=== PATIENT | male | born 1995 | race Caucasian/White ===

== ENCOUNTER 2024-08-15 08:39 | Emergency (ER) | payer BC, SELFPAY ==
--- NOTE | ~2024-08-15 | XR_ITS ---
HISTORY: pain, swelling, FOOSH injury 1 days ago COMPARISON: None TECHNIQUE: 3 views of the right wrist were performed. FINDINGS: Acute fracture of the medial margin of the distal radius, extending into the articular surface. Possible disruption of the distal carpal arcs from the proximal carpal arcs. Increased distance between the scaphoid and the trapezium and trapezoid bones for which ligamentous d isruption is suspected. The carpal arcs are otherwise intact. Bone mineralization is age-appropriate. Trace degenerative disease within the first carpometacarpal joint space No radiopaque foreign body is identified. IMPRESSION: Acute fracture of the radial margin of the distal radius extending into the articular surface with po ssible ligamentous disruption, as detailed above. Reviewed, dictated and finalized at location A. [employer] OFFICER IMPRESSION: Acute fracture of the radial margin of the distal radius extending into the art icular surface with possible ligamentous disruption, as detailed above.
--- NOTE | 2024-08-15 08:40 | ED.UPPEXIN ---
HPI - Extremity Injury (Upper) General Chief Complaint: Extremity Injury, Upper Stated Complaint: RT Wrist Pain Time Seen by Provider: 08/15/24 09:03 Source: patient, RN notes reviewed and old records reviewed Mode of arrival: ambulatory Limitations: no limitations History of Present Illness HPI narrative: 29-year-old male presents to the [facility] with complaints of right wrist pain. Pain all for the ulnar aspect into the hand. Bruising and swelling noted to the dorsal aspect. Patient reports full range of motion when he originally injured it. Decreased range of motion and increased pain. Related Data Home Medications ?Medication ?Instructions ?Recorded ?Confirmed ?Last Taken ?Type amlodipine 10 mg-olmesartan 40 mg 1 tablet PO DAILY 06/13/20 Unknown History tablet Allergies Allergy/AdvReac Type Severity Reaction Status Date / Time No Known Allergies Allergy Verified 08/15/24 09:01 Review of Systems Review of Systems: All systems reviewed & are unremarkable except as noted in HPI and below Constitutional: Constitutional: Reports no additional constitutional complaints ENT: Reports system reviewed and no additional complaints, except as documented Cardiovascular: Cardiovascular: Reports no additional cardiovascular complaints, Denies chest pain and Denies dyspnea Respiratory: Respiratory: Reports no additional respiratory complaints, Denies chest congestion, Denies cough and Denies dyspnea Musculoskeletal: Musculoskeletal: Reports as per HPI, Reports arthralgias and Reports joint swelling Integumentary/Breasts: Skin/Breast: Reports system reviewed and no additional complaints, except as docu PMFSH Past Medical History Medical History Possible exposure to STD Subscapularis tendinitis of right shoulder Lipoma of lower back HTN (hypertension), benign Social History Social History Smoking status: Never smoker Alcohol intake: never Comments At the time of my signature, I reviewed and agree with the nursing past medical, surgical, social, and family history. There is no relevant family history pertinent to the patient complaint. Exam Const: General: cooperative, healthy appearing, comfortable, no acute distress, well developed, alert and well nourished Nutritional Appearance: well nourished Orientation/consciousness: patient oriented x3 Limitations: no limitations HENMT: Head: normal to inspection Eyes: General: appearance normal, both eyes and all related structures Alignment and Position: alignment normal Neck: Neck: normal visual inspection, full ROM, no lymphadenopathy and no meningeal signs Chest: Chest palpation & inspection: normal inspection of the chest Resp: Effort & Inspection: normal respiratory effort and able to speak in complete sentences Cardio: Rate: regular rate Skin: General skin exam: normal color and no rashes or lesions noted Neuro: General: patient oriented x3, gait normal, moves all extremities and no meningeal signs Cognition (Neuro): normal cognition Speech: normal speech Gait exam (Neuro): Normal gait present Extrem: General: normal to inspection, full ROM, capillary refill normal and normal gait Right upper extremity: normal capillary refill, elbow/forearm normal to inspection and normal ROM, wrist tenderness, swelling, abnormal ROM and ecchymosis and Extremity exam: right hand normal capillary refill, neuromotor exam normal thumb opposition normal, thumb IP flexion normal, thumb ADduction normal and fingers 2-5 ABduction normal and normal ROM of fingers Hand/finger images:  1. Swelling, ecchymosis, tenderness to palpation. Psych: Appearance: grossly normal and well kempt Mental Status: mental status grossly normal Speech and movement: Normal speech and movement present and Clear speech present Affect: normal affect Attitude: cooperative Course Course Level of Care: Express Care Visit Vital Signs Vital signs: Vital Signs Temperature 97.5 F L 08/15/24 08:57 Pulse Rate 54 L 08/15/24 08:57 Respiratory Rate 18 08/15/24 08:57 Blood Pressure 129/63 08/15/24 08:57 Pulse Oximetry 100 08/15/24 08:57 Oxygen Delivery Room Air 08/15/24 08:57 Temperature 97.5 F L 08/15/24 08:57 Pulse Rate 54 L 08/15/24 08:57 Respiratory Rate 18 08/15/24 08:57 Blood Pressure 129/63 08/15/24 08:57 Pulse Oximetry 100 08/15/24 08:57 Oxygen Delivery Room Air 08/15/24 08:57 Reviewed MDM - Extremity Injury (Upper) MDM Narrative Medical decision making narrative: Patient sitting in exam room. Nontoxic, vitals stable. Patient in no acute distress. Patient presents with slip fall, FOOSH injury. Pain to the right wrist. Fracture noted on x-ray. Patient is placed in splint, given sling. Patient will follow-up with orthopedic back home in [facility]. Patient appropriate for outpatient treatment and follow-up Discharge instructions reviewed with patient, as well as provided in writing per nursing staff. The instructions also include specific and strict return/GO TO THE ER as well as f/u information. All questions have been answered, and the patient deny any further questions with discharge and discharge plan. Some parts of this dictation were generated by voice recognition software and may contain typographical and/or grammatical inaccuracies. Differential Diagnosis Differential diagnosis: Likely sprain and strain of wrist, fracture of wrist and fracture of hand Imaging Data Radiologist's impression: HISTORY: pain, swelling, FOOSH injury 1 days ago COMPARISON: None TECHNIQUE: 3 views of the right wrist were performed. FINDINGS: Acute fracture of the medial margin of the distal radius, extending into the articular surface. Possible disruption of the distal carpal arcs from the proximal carpal arcs. Increased distance between the scaphoid and the trapezium and trapezoid bones for which ligamentous disruption is suspected. The carpal arcs are otherwise intact. Bone mineralization is age-appropriate. Trace degenerative disease within the first carpometacarpal joint space No radiopaque foreign body is identified. IMPRESSION: Acute fracture of the radial margin of the distal radius extending into the articular surface with possible ligamentous disruption, as detailed above. Critical Care Time Critical Care Time Critical Care Time: No Discharge Plan Discharge Clinical Impression: Distal radius fracture, right Qualifiers: Encounter type: initial encounter Patient Disposition: Home, Self-Care Condition: Stable Instructions: Antibiotic Form, Wrist Fracture in Adults (ED), How to Use a Sling (ED), Splint Care (ED) Additional Instructions: Rest, ice and elevate every 2-3 hours for 15-20 minutes while awake Wear the splint until you see orthopedic Wear the sling for comfort Follow-up with orthopedic provider as soon as possible For new or worsening symptoms go directly to the emergency Patient Language: Luxembourger Prescriptions: No Action amlodipine-olmesartan 10-40 mg tablet 1 tablet PO DAILY Follow-up/Referrals: Albino Cruz MD [Physician] - UNKNOWN,DOCTOR [Non-Staff] - Stand Alone Forms: Work/School Release IP Time of Disposition: 10:00
[2024-08-15 08:57] VITALS: BP 129/63; PULSE 54; RESP 18; TEMP 36.4; O2SAT 100
--- OUTSIDE RECORDS SUMMARY | 2024-08-15 08:57 | XMS_ITS | Clinical Summary ---
Author Organization [facility] Address [facility] [place] [address] Care Team Providers Care Interventional Radiologist Name Role Phone Pcp, No Primary Care Provider Unavailabl e Allergies No known active allergies Medications Medication Sig Dispensed Refills Start Date End Date Status hydroCHLOROthiaz emani 12.5 mg capsule (MICROZIDE) TAKE 1 CAPSULE BY MOUTH EVERY DAY IN THE MORNING 90 capsule 1 07/29/2023 Active Additional Information Patient not taking.Reported on 10/26/2023 amLODIPine 10 mg-olmesartan 40 mg tablet (JAKE) Take 1 tablet by mouth daily. 90 tablet 1 07/19/2024 6 Active amLODIPine 10 mg-olmesartan 40 mg tablet (JAKE) Take 1 tablet by mouth daily. 90 tablet 2 10/29/2023 5 Discontinued Active Problems Problem Noted Date Diagnosed Date Orthostatic hypotension 03/28/2019 Assessment & Plan (09/26/2019 11:26 AM CDT): Instructed patient on mechanism and to be aware of when it will occur and to drink 16 ounces of room temperature water and eat a salty snack on days that are more problematic. Encourage him to drink plenty of water on a daily basis. Assessment & Plan (03/28/2019 11:38 AM CDT): Secondary to his meds. -Instructed patient on mechanism and to be aware of when it will occur and to drink 16 ounces of room temperature water and eat a salty snack on days that are more problematic. Essential (primary) hypertension 02/14/2019 Overview (02/23/2019): Prior w/u at [facility] U in included Echo, CT and labs(CBC, CMP and metanephrines), all of which were normal. Assessment & Plan (10/26/2023 12:33 PM CDT): Blood pressure currently in the 110s over 60s. Since he is quite orthostatic and is already drinking a lot of water he will reduce his Jake to one half tab daily and message me in a couple weeks with readings. Assessment & Plan (11/03/2022 4:01 PM CDT): Blood pressure is well controlled on current regimen. BMP today I have suggested that he go to see a psychologist to help him deal with his day-to-day anxiety, as this could be blood pressure and may enable him to both deal with his anxiety better and allow him to reduce his antihypertensive regimen. Assessment & Plan (04/21/2022 3:12 PM CDT): Blood pressure mildly elevated even on Jake and 6.25 mg of hydrochlorothiazide. His blood pressure did come down some with the addition of the hydrochlorothiazide so I asked him to take a full tablet of 12.5 mg daily and to get his labs checked in 2 weeks. He is also going to work on shedding the 10 to 15 pounds that he gained since our last visit. Echo reviewed with patient Assessment & Plan (04/01/2021 9:25 AM CDT): Blood pressure is well controlled by home readings I did instruct him to be sure he has his cuff checked against a reliable cuff to make sure his readings are accurate BMP ordered for today Echo ordered for follow-up in a year Assessment & Plan (08/07/2020 10:14 AM CARTOGRAPHY PROFESSOR): BP well controlled on Jake and off HCT with improvement in lifestyle Continue improved lifestyle Assessment & Plan (02/07/2020 10:56 AM CDT): BP well controlled on current regimen, but having issues with orthostatic symptoms. Discussed need to increase fluid intake and eating a salty snack on occasions his symptoms are more severe. He will let me know if this does not help and I will consider reducing HCT to 5 days a week. BMP in 6 months. Assessment & Plan (09/26/2019 11:24 AM CDT): Unable to get most recent BP readings, but otherwise feels well. Continue current regimen for now. He will go get a BMP in the near future. Encouraged him to drink plenty of water in light of use of HCT and orthostatic symptoms. Assessment & Plan (06/27/2019 11:42 AM CARTOGRAPHY PROFESSOR): BP too high by office reading. He will monitor at home and if he is above 130/80 will start on HCT 12.5 mg daily. Assessment & Plan (03/28/2019 11:38 AM CDT): BP improved, but not quite at goal. -Continue current regimen. -Discussed need for lifestyle changes, which includes modest exercise and consumption of low sodium diet. Assessment & Plan (02/14/2019 10:37 AM CDT): BP elevated on current regimen. -Will send for prior records. -Change from lisinopril to Jake 5/20 once a day. -I have instructed the patient to test their cuff against a reliable cuff and then to take 1-2 readings a day at random time of the day, after being seated and relaxed for 5-10 minutes. Reminder set to call and get readings. Will make changes to regimen based on his readings. Goal BP of <130/80. Encounters Date Type Department Care Team Description 07/14/2024 Refill [facility] [address] [place] [address] Donald Kee MD Med Refill from Last 3 Months Family History Medical History Relation Name Comments Other Cancer Brother No Known Problems Father amuno supressed Mother Relation Name Status Comments Brother Father Alive Mother Alive Social History Tobacco Use Types Packs/Day Years Used Date Smoking Tobacco: Never Smokeless Tobacco: Never Alcohol Use Standard Drinks/Week Comments Yes 0 (1 standard drink = 0.6 oz pur e alcohol) [facility] Historical Interpersonal Safety Answer Date Recorded Does anyone neglect, hurt, or threaten the patie nt? No 10/26/2023 Sex and Gender Information Value Date Recorded Sex Assigned at Not on file Gender Identity Not on file Sexual Orientation Not on file Last Filed Vital Signs Vital Sign Reading Time Taken Comments Blood Pressure 114/72 10/26/2023 11:48 AM CDT Pulse 49 10/26/2023 11:48 AM CDT Temperature - - Respiratory Rate - - Oxygen Saturation 99% 11/03/2022 3:38 PM CDT Inhaled Oxygen Concentration - - Weight 80.8 kg (178 lb 3.2 oz) 10/26/2023 11:48 AM CDT Height 183 cm (6' 0.05 ) 10/26/2023 11:48 AM CDT Body Mass Index 24.13 10/26/2023 11:48 AM CDT Plan of Treatment Upcoming Encounters Date Type Department Care Team (Late st Contact Info) Description 10/24/2024 1:00 PM CDT Office Visit [address] [place] [id number] Donald Kee MD [address] [facility] [address] [place] [id number] Health Maintenance Due Date Last Done Comments HIV Screening 1996 Lipid Panel 1996 Varicella Vaccine (1 of 2 - 13+ 2-dose series) 02/18/2009 Hepatitis B Vaccines (1 of 3 - 19+ 3-dose series) 02/18/2015 Hepatitis C Screening 02/18/2015 DTaP,Tdap,and Td Vaccines (1 - Tdap) 02/18/2021 Estimated Glomerular Filtration Rate (eGFR) 05/08/2023 05/08/2022, 04/01/2021 COVID-19 Vaccine (2 - 2023-2 5 season) 2024 11/06/2020 Influenza Vaccine (#1) 2024 Creatinine Level 09/24/2024 09/25/2023 Potassium Level 09/24/2024 09/25/2023, 05/08/2022, 04/01/2021 eGFR/Creatinine Level 09/24/2024 HIB Vaccines Aged Out No longer eligi ble based on patient's age to complete this topic HPV Vaccines Aged Out No longer eligi ble based on patient's age to complete this topic Meningococcal ACWY Vaccine Aged Out N o longer eligible based on patient's age to complete this topic Meningococcal B Vaccine Aged Out No l onger eligible based on patient's age to complete this topic Pneumococcal Vaccine: Pediatric (0-5 yrs) and At-Risk (6-49 yrs) Aged Out No longer eligible b ased on patient's age to complete this topic Procedures Procedure Name Priority Date/Time Associated Diagnosis Comments BMP Routine 09/25/2023 3:10 PM CDT Essential (primary) hypertension EGFR Routine 05/08/2022 5:32 PM CARTOGRAPHY PROFESSOR from Last 3 Months or Most Recently Relevant to Health Maintenance Results * (ABNORMAL) BMP (09/25/2023 3:10 PM CDT) Sodium Level 141 136 - 145 mmol/L [facility] Potassium Level 4.2 3.3 - 4.8 mmol/L [facility] Comment:Plasma reference ran ges are shown, please note that serum reference ranges are higher than plasma. Chloride Level 105 98 - 107 mmol/L [facility] Carbon Dioxide 27 22 - 29 mmol/L [facility] Glucose Level 88 70 - 99 mg/dL [facility] Blood Urea Nitrogen 22(H) 7 - 21 mg/dL [facility] Creatinine Level 1.19 0.72 - 1.25 mg/dL [facility] Calcium Level Total 9.5 8.4 - 10.5 mg/dL [facility] Anion Gap 9 [facility] Comment:This test was perfor med at: [facility] [address] [facility]# [id number],Donald Cox MD, PhD, Medical Administrative Assistant,[address] [place] [address], [address] [address],[place], [place],[address] Blood 09/25/2023 3:10 PM CDT 09/25/2023 3:34 PM CDT Donald Kee MD LAB BLOOD ORDERABL ES [facility] [address] [facility] [address] [place] [address], * eGFR (05/08/2022 5:32 PM CARTOGRAPHY PROFESSOR) eGFR >60 ml/min/1.7 3 m2 [facility] Comment:Estimated glomerular filtration rate (eGFR) is calculated using the [facility] MDRD equation, which is recommended for use in normal healthy individuals 18-70 years of age and has not been validated in other populations. Blood 05/08/2022 5:32 PM CARTOGRAPHY PROFESSOR 05/08/2022 5:38 PM CARTOGRAPHY PROFESSOR Donald Kee MD LAB BLOOD ORDERABL ES [facility] from Last 3 Months or Most Recently Relevant to Health Maintenance Care Teams Interventional Radiologist Relationship Specialty Start Date End Date Pcp, No PCP - General 02/14/19
--- OUTSIDE RECORDS SUMMARY | 2024-08-15 08:57 | XMS_ITS | Encounter Summary ---
Author Organization [facility] Address [address] [facility] [place] [address] Care Team Providers Care Dough Brake Machine Operator Name Role Phone Pcp, No Primary Care Provider Unavailabl e Reason for Visit * Reason Comments Med Refill Encounter Details Date Type Department Care Team (Late st Contact Info) Description 04/13/2020 Refill [facility] [address] [facility] [address] [place] [address] Donald Kee MD [address] [place] [address] Med Refill Social History Tobacco Use Types Packs/Day Years Used Date Smoking Tobacco: Never Smokeless Tobacco: Never Alcohol Use Standard Drinks/Week Comments Yes 0 (1 standard drink = 0.6 oz pur e alcohol) Occ Sex and Gender Information Value Date Recorded Sex Assigned at Not on file Gender Identity Not on file Sexual Orientation Not on file documented as of this encounter Plan of Treatment Upcoming Encounters Date Type Department Care Team (Late st Contact Info) Description 10/24/2024 1:00 PM CDT Office Visit [facility] [address] [facility] [address] [place] [address] Donald Kee MD [address] [place] [address] documented as of this encounter Visit Diagnoses Not on filedocumented in this encounter Care Teams Dough Brake Machine Operator Relationship Specialty Start Date End Date Pcp, No PCP - General 02/14/19 documented as of this encounter
--- OUTSIDE RECORDS SUMMARY | 2024-08-15 08:57 | XMS_ITS | Encounter Summary ---
Author Organization [facility] Address [facility] [place] [address] Care Team Providers Care Edge Worker Name Role Phone Pcp, No Primary Care Provider Unavailabl e Reason for Visit * Reason Comments Med Refill Encounter Details Date Type Department Care Team (Late Contact Info) Description 02/15/[address] [place] [address] Donald Kee MD [address] [place] [address] Med Refill Social History Tobacco Use Types [...] Description 10/24/2024 1:00 PM CDT Office Visit [facility] [address] [facility] [address] [place] [address] Donald Kee MD [address] [place] [address] documented as of this encounter Visit Diagnoses Not on filedocumented in this encounter Care Teams Edge Worker Relationship Specialty Start Date End Date Pcp, No PCP - General 02/14/19 documented as of this encounter
--- OUTSIDE RECORDS SUMMARY | 2024-08-15 08:57 | XMS_ITS | Encounter Summary ---
Author Organization [facility] Address [address] [facility] [place] [address] Care Team Providers Care Topline Beading Machine Tender Name Role Phone Pcp, No Primary Care Provider Unavailabl e Reason for Visit * Reason Comments Med Refill Encounter Details Date Type Department Care Team (Late Contact Info) Description 05/12/[address] [place] [address] Donald Kee MD [address] [place] [address] Med Refill Social History Tobacco Use Types [...] Description 10/24/2024 1:00 PM CDT Office Visit [place] [id number] [facility] [address] [place] [address] Donald Kee MD [address] [place] [address] documented as of this encounter Visit Diagnoses Not on filedocumented in this encounter Care Teams Topline Beading Machine Tender Relationship Specialty Start Date End Date Pcp, No PCP - General 02/14/19 documented as of this encounter
--- OUTSIDE RECORDS SUMMARY | 2024-08-15 08:57 | XMS_ITS | Encounter Summary ---
Author Organization [facility] Address [facility] [place] [address] Care Team Providers Care Blacksmith Assistant Name Role Phone Pcp, No Primary Care Provider Unavailabl e Encounter Details Date Type Department Care Team (Late st Contact Info) Description 05/30/2023 Orders Only [facility] [address] [facility] [address] [place] [address] Donald Kee MD [address] [facility] [address] [place] [address] Essential (primary) hypertension (Primary Dx) Social History Tobacco Use Types Packs/Day Years Used Date Smoking Tobacco: Never Smokeless Tobacco: Never Alcohol Use Standard Drinks/Week Comments Yes 0 (1 standard drink = 0.6 oz pur e alcohol) Occ Sex and Gender Information Value Date Recorded Sex Assigned at Not on file Gender Identity Not on file Sexual Orientation Not on file documented as of this encounter Progress Notes * REILLY SANCHEZ - 05/30/2023 3:53 PM CST 06-01-23 please see msg CO WORKER * Renetta Oneill RN - 05/30/2023 3:53 PM CST Attempted to call patient Unable to leave VM CO WORKER * Renetta Oneill RN - 05/30/2023 3:53 PM CST Patient will have lab drawn when he returns from [place]. CO WORKER documented in this encounter Plan of Treatment Upcoming Encounters Date Type Department Care Team (Late st Contact Info) Description 10/24/2024 1:00 PM CDT Office Visit [facility] [address] [facility] [address] [place] [address] Donald Kee MD [address] [facility] [address] [place] [address] documented as of this encounter Visit Diagnoses Diagnosis Essential (primary) hypertension- Primary documented in this encounter Care Teams Blacksmith Assistant Relationship Specialty Start Date End Date Pcp, No PCP - General 02/14/19 documented as of this encounter
--- OUTSIDE RECORDS SUMMARY | 2024-08-15 08:57 | XMS_ITS | Encounter Summary ---
Author Organization [facility] Address [facility] [place] [address] Care Team Providers Care Chauffeur Name Role Phone Pcp, No Primary Care Provider Unavailabl e Reason for Visit * Reason Comments Med Refill Encounter Details Date Type Department Care Team (Late Contact Info) Description 02/09/[address] [place] [address] Donald Kee MD [address] [place] [address] Med Refill Social History Tobacco Use Types [...] Description 10/24/2024 1:00 PM CDT Office Visit [place] [id number] [facility] [address] [place] [address] Donald Kee MD [address] [place] [address] documented as of this encounter Visit Diagnoses Not on filedocumented in this encounter Care Teams Chauffeur Relationship Specialty Start Date End Date Pcp, No PCP - General 02/14/19 documented as of this encounter
--- OUTSIDE RECORDS SUMMARY | 2024-08-15 08:57 | XMS_ITS | Encounter Summary ---
Author Organization [facility] Address [address] [facility] [place] [address] Care Team Providers Care Roving Hand Name Role Phone Pcp, No Primary Care Provider Unavailabl e Reason for Visit * Reason Comments Med Refill Encounter Details Date Type Department Care Team (Late st Contact Info) Description 11/25/[address] [place] [address] Donald Kee MD [address] [place] [id number] Med Refill Social History Tobacco Use Types Packs/Day Years Used Date Smoking Tobacco: Never Smokeless Tobacco: Never Alcohol Use Standard Drinks/Week Comments Yes 0 (1 standard drink = 0.6 oz pur e alcohol) Occ Sex and Gender Information Value Date Recorded Sex Assigned at Not on file Gender Identity Not on file Sexual Orientation Not on file documented as of this encounter Miscellaneous Notes * Telephone Encounter - Kristen Aguilar RN - 11/26/2020 11:28 AM CDT pt no longer takes hct documented in this encounter Plan of Treatment Upcoming Encounters Date Type Department Care Team (Late st Contact Info) Description 10/24/2024 1:00 PM CDT Office Visit [place] [id number] [facility] [address] [place] [address] Donald Kee MD [address] [facility] [address] [place] [address] documented as of this encounter Visit Diagnoses Not on filedocumented in this encounter Care Teams Roving Hand Relationship Specialty Start Date End Date Pcp, No PCP - General 02/14/19 documented as of this encounter
--- OUTSIDE RECORDS SUMMARY | 2024-08-15 08:57 | XMS_ITS | Encounter Summary ---
Author Organization [facility] Address [address] [facility] [place] [address] Care Team Providers Care Slitting And Shipping Supervisor Name Role Phone Pcp, No Primary Care Provider Unavailabl e Reason for Visit * Reason Comments Med Refill Encounter Details Date Type Department Care Team (Late Contact Info) Description 05/16/[address] [place] [id number] Donald Kee MD [address] [place] [id number] Med Refill Social History Tobacco Use Types Packs/Day Years Used Date Smoking Tobacco: Never Smokeless Tobacco: Never Alcohol Use Standard Drinks/Week Comments Yes 0 (1 standard drink = 0.6 oz pur e alcohol) Occ Sex and Gender Information Value Date Recorded Sex Assigned at Not on file Gender Identity Not on file Sexual Orientation Not on file COVID-19 Exposure Response Date Recorded In the last 10 days, have yo u been in contact with someone who was confirmed or suspected to have Coronavirus/COVID-19? No / Unsure 04/21/2022 2:53 PM CDT documented as of this encounter Plan of Treatment Upcoming Encounters Date Type Department Care Team (Late Contact Info) Description 10/24/2024 1:00 PM CDT Office Visit [place] [id number] [facility] [address] [place] [address] Donald Kee MD [address] [place] [id number] documented as of this encounter Visit Diagnoses Not on filedocumented in this encounter Care Teams Slitting And Shipping Supervisor Relationship Specialty Start Date End Date Pcp, No PCP - General 02/14/19 documented as of this encounter
== END 2024-08-15 10:05 | disposition home or self-care (01) ==
PROVIDERS: Emergency Provider Nurse Practitioner
DX: S52.501A Unspecified fracture of the lower end of right radius, initial encounter for closed fracture (principal); W01.0XXA Fall on same level from slipping, tripping and stumbling without subsequent striking against object, initial encounter; I10 Essential (primary) hypertension
CPT/HCPCS: 29125; 73110; 99214; A4565; G0463